=== PATIENT | female | born 1985 | race Two or more races ===

== ENCOUNTER 2017-02-05 17:45 | Emergency (ER) | payer MEDICAID ==
[~2017-02-05 17:45] MED LIST: DICLOFENAC POTA50 M1 PO; NO HOME MEDICATION XX; TRAMADOL HCL50 M2 PO
[2017-02-05 20:01] LABS: BASO % 0.2 % (0-2); EOS % 0.1 % (0-7); HCT-HEMATOCRIT 37.2 % (34.0-49.0); HGB-HEMOGLOBIN 13.2 gm/dl (12.0-15.5); IMMATURE GRANULOCYTES ABSOLUTE 0.02 tho/cmm (0-0.03); IMMATURE GRANULOCYTES PERCENT 0.2 % (0-0.3); LYMPH % 6.1 % (20-45); LYMPH ABSOLUTE COUNT 0.7 tho/cmm (0.8-4.5); MCH (MEAN CORPUSCULAR HGB) 28.1 pg (28.0-32.0); MCHC MEAN CORPUSCULAR HGB CONC 35.5 % (32.0-36.0); MCV (MEAN CELL VOLUME) 79.1 fl (82.0-96.0); MEAN PLATELET VOLUME 8.8 cmc (9.4-12.4); MONO % 3.6 % (0-12); MONOCYTE ABSOLUTE COUNT 0.4 tho/cmm (0.0-1.2); NEUTROPHIL ABSOLUTE COUNT 9.9 tho/cmm (1.6-8.0); NEUTROPHIL-AUTOMATED 9.9 tho/cmm (1.6-8.0); NEUTROPHILS % 89.8 % (40-80); PLATELET COUNT 212 tho/cmm (150-450); RED CELL DISTRIBUTION WIDTH 12.6 % (12.4-16.4); WHITE BLOOD COUNT 11.1 tho/cmm (4.0-10.0)
[2017-02-05 20:05] LABS: URINE BILIRUBIN NEGATIVE (NEG); URINE BLOOD SMALL (NEG); URINE GLUCOSE (UA) NEGATIVE (NEG); URINE KETONE MODERATE (NEG); URINE LEUKOCYTE ESTERASE NEGATIVE (NEG); URINE NITRITE NEGATIVE (NEG); URINE PROTEIN NEGATIVE (NEG); URINE SPECIFIC GRAVITY 1.015 (1.003-1.030)
[2017-02-05 20:08] LABS: URINE APPEARANCE CLEAR; URINE COLOR YELLOW
[2017-02-05 20:20] LABS: ALB/GLOB RATIO 0.9 (0.8-2.0); ALBUMIN 3.8 g/dl (3.5-5.0); ALKALINE PHOSPHATASE 81 U/L (33-138); ALT/SGPT 25 U/L (12-78); ANION GAP 13 mmol/L (0-20); BLOOD UREA NITROGEN 9 mg/dl (6-24); CALCIUM 8.8 mg/dl (8.5-10.5); CARBON DIOXIDE-VENOUS 24 mmol/L (22-32); CHLORIDE 106 mmol/l (96-110); CREATININE 0.58 mg/dl (0.50-1.10); GLUCOSE 94 mg/dL (70-110); POTASSIUM 3.5 mmol/L (3.7-5.1); SODIUM 139 mmol/L (135-145); eGFR VALUE FOR BLACK >90 mL/Min
[2017-02-05 20:21] LABS: AST/SGOT 17 U/L (10-40)
[2017-02-05 20:29] LABS: URINE WBC 0-1 /[HPF] (0-5)
[2017-02-05 20:30] LABS: URINE BACTERIA 1+; URINE MUCUS 1+; URINE OTHER CLUE CELLS NOTED.
== END 2017-02-05 21:06 ==
LOC: EDMED 17:45
PROVIDERS: Physician Assistant
DX: O98.511 Other viral diseases complicating pregnancy, first trimester (principal); B34.9 Viral infection, unspecified; Z3A.08 8 weeks gestation of pregnancy
CPT/HCPCS: J7030